=== PATIENT | female | born 1960 | race Caucasian/White ===

== ENCOUNTER 2017-04-13 19:37 | Emergency (ER) | payer OTHER ==
[~2017-04-13] VITALS: Ht 157.5 cm; Wt 78.5 kg
[~2017-04-13 19:37] MED LIST: SIMV20TA1 PO; VAS2.5 PO
[2017-04-13 20:21] VITALS: BP 160/90
[2017-04-13] MEDS ORDERED: ONDANSETRON 4 MG/2 ML VIAL IVP ONE (21:20)
[2017-04-13] MEDS ORDERED: NACL 0.9% 1,000 ML IV ONE (21:20)
[2017-04-13] MEDS ORDERED: MORPHINE SULFATE 2 MG/ML SYR IVP ONE ×2 (21:20→23:35)
[2017-04-13] MEDS ORDERED: PANTOPRAZOLE 40 MG INJ VIAL IVP ONE (21:20)
[2017-04-13 22:20] LABS: BASOPHILS # (AUTO) 0.1 K/uL (0.00-0.22); BASOPHILS % (AUTO) 0.7 % (0.0-2.0); EOSINOPHILS % (AUTO) 0.4 % (0.0-4.0); HEMOGLOBIN 14.2 g/dL (12.0-16.0); LYMPHOCYTES # (AUTO) 1.8 K/uL (2.5-16.5); LYMPHOCYTES % (AUTO) 21.9 % (20.5-51.1); MEAN CORPUSCULAR HEMOGLOBIN 29 pg (27-31); MEAN CORPUSCULAR HGB CONC 33 g/dL (33-37); MEAN CORPUSCULAR VOLUME 87 fL (80-94); MONOCYTES # (AUTO) 0.4 K/uL (0.8-1.0); MONOCYTES % (AUTO) 5.3 % (1.7-9.3); NEUTROPHILS % (AUTO) 71.7 % (42.2-75.2); PLATELET COUNT (AUTO) 212 K/uL (140-450); RED BLOOD CELL COUNT(AUTO) 4.95 MIL/uL (4.20-5.40); WHITE BLOOD COUNT (AUTO) 8.3 K/uL (4.8-10.8)
[2017-04-13] MEDS ORDERED: MORPHINE SULFATE 5 MG/ML VIAL ONE (22:27)
[2017-04-13 22:33] LABS: ANION GAP 12.1 (8-16); POTASSIUM 4.1 mmol/L (3.5-5.1)
[2017-04-13 22:40] LABS: ALBUMIN 3.8 g/dL (3.4-5.0); TOTAL BILIRUBIN 0.4 mg/dL (0.0-1.0)
[2017-04-13 22:44] LABS: APPEARANCE,URINE CLEAR (CLEAR); BILIRUBIN,URINE NEGATIVE (NEGATIVE); BLOOD, URINE TRACE-I (NEGATIVE); COLOR,URINE YELLOW (YELLOW); LEUKOCYTE ESTERASE ,URINE NEGATIVE (NEGATIVE); NITRITE, URINE NEGATIVE (NEGATIVE); PH,URINE 6.5 (5.0-9.0); UGLUCOSE NEGATIVE (NEGATIVE)
[2017-04-13] MEDS ORDERED: FAMOTIDINE 20 MG/2 ML VIAL IVP ONE (22:50)
[2017-04-13] MEDS ORDERED: LIDOCAINE VISCOUS 2% 20 ML UDC PO ONE (22:50)
[2017-04-13] MEDS ORDERED: ALUMINUM HYD/MAG/SIMETHICONE 30 ML UDC PO ONE (22:50)
[2017-04-13 22:59] LABS: RBC,URINE 0-5 (RARE) /HPF (0-5); WBC,URINE 0-5 (RARE) /HPF (0-5)
[2017-04-13] MEDS ORDERED: MORPHINE SULFATE 10 MG/ML SYR ONE (23:48)
[2017-04-14 00:57] VITALS: BP 160/80
== END 2017-04-14 00:57 | disposition home or self-care (01) ==
LOC: MED 19:37
DX: R10.13 Epigastric pain (principal); K27.9 Peptic ulcer, site unspecified, unspecified as acute or chronic, without hemorrhage or perforation; I10 Essential (primary) hypertension; Z90.49 Acquired absence of other specified parts of digestive tract; Z79.899 Other long term (current) drug therapy
CPT/HCPCS: 36415; 74176; 80053; 81001; 81025; 83690; 85025; 87086; 93005; 96361; 96374; 96375; 96376; 99285; J2270; J2405; J3490; J7030

== ENCOUNTER 2021-08-01 00:41 | Emergency (ER) | payer OTHER ==
[~2021-08-01] VITALS: Ht 154.9 cm; Wt 78.5 kg
[2021-08-01 00:44] VITALS: BP 155/98
--- NOTE | 2021-08-01 00:44 | NUR ---
PT [facility]. TAKEN TO BED 7
--- NOTE | 2021-08-01 01:21 | NUR ---
60 Y/O F C/O ABD PAIN X 2-3 DAYS + DIARRHEA. RECIVED HER 1ST CHEMO TREATMENT ON . PMH: HTN, HIGH CHOLESTEROL, LEFT BREAST CANCER MEDS: DENIES NKDA
[2021-08-01 01:24] LABS: HEMOGLOBIN 14.4 g/dL (12.0-16.0)
--- NOTE | 2021-08-01 01:27 | NUR ---
Dr. Medina examining patient.
[2021-08-01 01:33] LABS: HEMATOCRIT 42.5 % (36-48); MEAN CORPUSCULAR HEMOGLOBIN 29 pg (27-31); MEAN CORPUSCULAR HGB CONC 34 g/dL (33-37); PLATELET COUNT (AUTO) 148 K/uL (140-450); RED BLOOD CELL COUNT(AUTO) 4.94 MIL/uL (4.20-5.40)
[2021-08-01] MEDS ORDERED: NACL 0.9% 1,000 ML IV ONE (01:40)
[2021-08-01] MEDS ORDERED: ONDANSETRON 4 MG/2 ML VIAL IVP ONE ×2 (01:40→05:25)
[2021-08-01] MEDS ORDERED: MORPHINE SULFATE 4 MG/ML SYR IVP ONE ×2 (01:40→05:25)
[2021-08-01 01:51] LABS: ALBUMIN 3.7 g/dL (3.4-5.0); CARBON DIOXIDE 25.8 mmol/L (21-32); CREATININE 0.8 mg/dL (0.6-1.3); POTASSIUM 3.8 mmol/L (3.5-5.1); TOTAL BILIRUBIN 0.7 mg/dL (0.0-1.0)
[2021-08-01 01:54] LABS: LYMPHOCYTES % (MANUAL) 65 % (20-46); MONOCYTES % (MANUAL) 10 % (5-12); WHITE BLOOD COUNT (AUTO) 1.1 K/uL (4.8-10.8)
[2021-08-01 02:18] LABS: MAGNESIUM 2.3 mg/dL (1.8-2.4); PHOSPHORUS 2.7 mg/dL (2.5-4.9)
--- NOTE | 2021-08-01 02:30 | NUR ---
PT TAKEN TO CT
--- NOTE | 2021-08-01 02:38 | NUR ---
PT RETURN FROM CT
[2021-08-01] MEDS ORDERED: ALUMINUM HYD/MAG/SIMETHICONE 30 ML UDC PO ONE (04:35)
[2021-08-01] MEDS ORDERED: methocarbamoL 500 MG TAB PO SCH (04:35)
[2021-08-01 05:00] VITALS: BP 145/89
[2021-08-01] MEDS ORDERED: ONDA-188 SL (05:07)
[2021-08-01] MEDS ORDERED: METH-1681 PO (05:07)
[2021-08-01] MEDS ORDERED: ACET-10509 PO (05:07)
--- NOTE | 2021-08-01 06:03 | NUR ---
Patient discharged with v/s stable. Written and verbal after care instructions given and explained. Patient alert, oriented and verbalized understanding of instructions. Ambulatory with steady gait. All questions addressed prior to discharge. ID band removed. Patient advised to follow up with PMD. Rx of TYLENOL, ROBAXIN, ZOFRAN given. Patient educated on indication of medication including possible reaction and side effects. Opportunity to ask questions provided and answered.
[2021-08-02] MEDS ORDERED: DICY20TA19 PO (09:17)
== END 2021-08-01 06:03 | disposition home or self-care (01) ==
LOC: MED 00:41
DX: R10.13 Epigastric pain (principal); R11.2 Nausea with vomiting, unspecified; C79.81 Secondary malignant neoplasm of breast; D72.819 Decreased white blood cell count, unspecified; I10 Essential (primary) hypertension; Z79.899 Other long term (current) drug therapy; Z90.49 Acquired absence of other specified parts of digestive tract
CPT/HCPCS: 36415; 74176; 80053; 81002; 83690; 83735; 84100; 84484; 85025; 87040; 93005; 96361; 96374; 96375; 96376; 99285; J2270; J2405

== ENCOUNTER 2021-08-02 06:23 | Emergency (ER) | payer OTHER ==
[~2021-08-02] VITALS: Ht 157.5 cm; Wt 78.5 kg
[~2021-08-02 06:23] MED LIST changes: +ACET-10509 PO; +METH-1681 PO; +ONDA-188 SL
[2021-08-02 06:39] VITALS: BP 105/77
--- NOTE | 2021-08-02 06:46 | NUR ---
PT TO BED 07 W WHEELCHAIR, ACCOMPANIED BY DAUGHTER.
--- NOTE | 2021-08-02 07:01 | NUR ---
ROBAXIN AND TYLENOL RX PRESCRIBED YESTERDAY LAST DOSE ROBAXIN 0052 LAST DOSE TYLENOL [id number]
--- NOTE | 2021-08-02 07:05 | NUR ---
REPORT GIVEN TO IRAM Monroe
--- NOTE | 2021-08-02 07:06 | NUR ---
REPORT GIVE TO IRAM BOSTON
--- NOTE | 2021-08-02 07:06 | NUR ---
REPORT RECIEVED FROM LUDY KULKARNI. ASSUMED CARE AT THIS TIME
[2021-08-02] MEDS ORDERED: NACL 0.9% 1,000 ML IV SCH (07:40)
[2021-08-02] MEDS ORDERED: ONDANSETRON 4 MG/2 ML VIAL IVP ONE (07:40)
[2021-08-02] MEDS ORDERED: MORPHINE SULFATE 4 MG/ML SYR IVP ONE (07:40)
--- NOTE | 2021-08-02 08:12 | NUR ---
20g iv established to r forearm, labs drawn bedside and handed to laborer orchard.
--- NOTE | 2021-08-02 08:17 | NUR ---
60/F PRESENTS TO ED WITH C/O ABDOMINAL PAIN, NAUSEA AND VOMITING SINCE LAST WEEK. PATIENT STATES HX OF BREAST CANCER AND STATES SHE RECEIVED HER FIRST CHEMO SESSION LAST WEEK. STATING PAIN BEGAN SHORTLY AFTER. PATIENT WAS SEEN HERE YESTERDAY FOR SAME SYMPTOMS, STATES SHE WAS D/C HOME AND HAS NOT FOUND RELIEF. DENIES FEVERS, DIARRHEA OR URINARY SYMPTOMS.
[2021-08-02 08:23] LABS: HEMATOCRIT 40.4 % (36-48); HEMOGLOBIN 13.7 g/dL (12.0-16.0); LYMPHOCYTES # (AUTO) 0.7 K/uL (2.5-16.5); MONOCYTES # (AUTO) 0.5 K/uL (0.8-1.0); NEUTROPHILS # (AUTO) 0.5 K/uL (1.8-7.7); RED CELL DISTRIBUTION WIDTH 14.7 % (11.6-13.7)
[2021-08-02 08:41] LABS: ALBUMIN 3.4 g/dL (3.4-5.0); ANION GAP 12.6 (8-16); CARBON DIOXIDE 25.5 mmol/L (21-32); CREATININE 0.7 mg/dL (0.6-1.3); POTASSIUM 4.1 mmol/L (3.5-5.1); TOTAL BILIRUBIN 0.5 mg/dL (0.0-1.0)
[2021-08-02 08:50] LABS: BASOPHILS % (AUTO) 1.2 % (0.0-2.0); EOSINOPHILS % (AUTO) 1.1 % (0.0-4.0); LYMPHOCYTES % (AUTO) 39.2 % (20.5-51.1); MEAN CORPUSCULAR HEMOGLOBIN 29 pg (27-31); MEAN CORPUSCULAR HGB CONC 34 g/dL (33-37); MEAN CORPUSCULAR VOLUME 86.7 fL (80-94); MONOCYTES % (AUTO) 27.2 % (1.7-9.3); NEUTROPHILS % (AUTO) 31.3 % (42.2-75.2); PLATELET COUNT (AUTO) 162 K/uL (140-450); RED BLOOD CELL COUNT(AUTO) 4.66 MIL/uL (4.20-5.40)
--- NOTE | 2021-08-02 09:06 | NUR ---
pt stated no pain at this time , feeling less nauseous.
[2021-08-02 09:09] LABS: WHITE BLOOD COUNT (AUTO) 1.7 K/uL (4.8-10.8)
[2021-08-02] MEDS ORDERED: ALUMINUM HYD/MAG/SIMETHICONE 30 ML, DICYCLOMINE HCL LIQUID 20 MG, LIDOCAINE VISCOUS 2% ... PO ONE ×3 (09:15)
[2021-08-02] MEDS ORDERED: HYDROcodone/APAP 5/325 MG 1 TAB TAB PO ONE (09:15)
[2021-08-02] MEDS ORDERED: PANTOPRAZOLE 40 MG INJ VIAL IVP ONE (09:15)
[2021-08-02] MEDS ORDERED: DICY20TA19 PO (09:17)
[2021-08-02] MEDS ORDERED: DICYCLOMINE HCL LIQUID 10 MG/5 ML UDC ONE ×2 (09:22→09:24)
[2021-08-02] MEDS ORDERED: ALUMINUM HYD/MAG/SIMETHICONE 30 ML UDC ONE (09:22)
--- NOTE | 2021-08-02 10:20 | NUR ---
IV removed, catheter intact and site benign. Applied folded 4x4 gauze and tape to stop bleeding.
--- NOTE | 2021-08-02 10:24 | NUR ---
Patient discharged with v/s stable. Written and verbal after care instructions given and explained. Patient alert, oriented and verbalized understanding of instructions. Ambulatory with steady gait. All questions addressed prior to discharge. ID band removed. Patient advised to follow up with PMD. Rx of DICYCLOMINE HCL given. Opportunity to ask questions provided and answered.
[2021-08-02 10:25] VITALS: BP 150/90
--- NOTE | 2021-08-02 10:25 | NUR ---
The patient's care was reviewed and supervised by Aidee Hahn RN.
== END 2021-08-02 10:25 | disposition home or self-care (01) ==
LOC: MED 06:23
DX: R10.9 Unspecified abdominal pain (principal); E86.0 Dehydration; D72.819 Decreased white blood cell count, unspecified; R11.2 Nausea with vomiting, unspecified; I10 Essential (primary) hypertension; Z79.899 Other long term (current) drug therapy; Z85.3 Personal history of malignant neoplasm of breast
CPT/HCPCS: 36415; 80053; 83690; 85025; 96361; 96374; 96375; 99284; C9113; J2270; J2405; J7030